=== PATIENT | female | born 1945 | race Caucasian/White ===

== ENCOUNTER 2016-10-16 12:20 | Inpatient (IN) | payer OTHER ==
[~2016-10-16] VITALS: Ht 167.6 cm; Wt 93.9 kg
--- NOTE | 2016-10-16 12:41 | NUR ---
SENT BY DR DALY LAWRENCE FOR RIGHT FOOT CELLULITIS. AWAITING MD ORDER
--- NOTE | 2016-10-16 13:30 | NUR ---
RAJANI PSYCHOLOGY INSTRUCTOR AT BEDSIDE FOR WOUND EVAL
--- NOTE | 2016-10-16 14:26 | NUR ---
CALLED FOR FOOD TRAY
[2016-10-16] MEDS ORDERED: MORPHINE SULFATE INJ 2 MG/ML DISP.SYRIN IV ONE (14:30)
[2016-10-16 14:40] LABS: BASOPHILS # (AUTO) 0.1 /CMM (0.0-0.2); BASOPHILS % (AUTO) 0.5 % (0.0-2.0); EOSINOPHILS # (AUTO) 0.3 /CMM (0.0-0.7); HEMATOCRIT 33 % (33-45); HEMOGLOBIN 10.4 g/dL (11.5-14.8); LYMPHOCYTES # (AUTO) 1.9 /CMM (0.8-4.8); LYMPHOCYTES % (AUTO) 18.1 % (20.0-44.0); MEAN CORPUSCULAR HEMOGLOBIN 29 PG (26.0-33.0); MEAN CORPUSCULAR HGB CONC 32 g/dl (31.0-36.0); MEAN CORPUSCULAR VOLUME 90 fL (82-100); MONOCYTES # (AUTO) 0.4 /CMM (0.1-1.30); MONOCYTES % (AUTO) 3.5 % (2.0-12.0); NEUTROPHILS # (AUTO) 7.9 /CMM (1.8-8.9); NEUTROPHILS % (AUTO) 74.9 % (43.0-81.0); PLATELET COUNT (AUTO) 348 /CMM (150-450); RDW COEFFICIENT OF VARIATION 15.4 (11.5-15.0); RED BLOOD CELL COUNT(AUTO) 3.64 MIL/uL (4.0-5.2); WHITE BLOOD COUNT (AUTO) 10.6 K/uL (4.3-11.0)
[2016-10-16 14:50] LABS: CALCIUM, SERUM 8.9 mg/dL (8.5-10.1); CARBON DIOXIDE 32 mmol/L (21-32); CHLORIDE 97 mmol/L (98-107); CREATININE 5.5 mg/dL (0.6-1.3); GLUCOSE 201 mg/dL (74-106); POTASSIUM 4.1 mmol/L (3.5-5.1); SODIUM SERUM 136 mmol/L (136-145); UREA NITROGEN, BLOOD 50 mg/dL (7-18)
[2016-10-16 14:53] LABS: INR 0.96 (0.87-1.13)
[2016-10-16 14:55] LABS: ALANINE AMINOTRANSFERASE 15 U/L (12-78); ALBUMIN 3.2 g/dL (3.4-5.0); ALKALINE PHOSPHATASE 84 U/L (46-116); ASPARTATE AMINOTRANSFERASE 19 U/L (15-37); BILIRUBIN,DIRECT 0.1 mg/dL (0.0-0.2); BILIRUBIN,TOTAL 0.3 mg/dL (0.2-1.0); TOTAL PROTEIN, SERUM 7.1 g/dL (6.4-8.2)
[2016-10-16 14:57] LABS: TROPONIN I 0.155 ng/mL (0.00-0.056)
[2016-10-16] MEDS ORDERED: VANCOMYCIN 1 GM in IV D5W 250 ML IV ONE (15:00)
[2016-10-16] MEDS ORDERED: PIPERACILLIN /TAZOBACTAM 3.375 G in IV D5W 50 ML IV ONE (15:00)
[2016-10-16] MEDS ORDERED: IV SET PRIMARY PUMP SET 1 EA INFUS.SET MC ONE (15:04)
[2016-10-16] MEDS ORDERED: MORPHINE SULFATE INJ 4 MG/ML DISP.SYRIN ONE (15:04)
--- NOTE | 2016-10-16 15:15 | NUR ---
RECEIVED ORDERS FROM DR LAWRENCE WRITTEN AND PLACED IN CHART
[2016-10-16] MEDS ORDERED: BUPR300T54 PO (15:31)
[2016-10-16] MEDS ORDERED: APIX2.5T PO (15:31)
[2016-10-16] MEDS ORDERED: LEVO200T8 PO (15:31)
[2016-10-16] MEDS ORDERED: GABA-532 PO (15:31)
[2016-10-16] MEDS ORDERED: CALC667C6 PO (15:40)
[2016-10-16] MEDS ORDERED: ATOR80TA PO (15:40)
[2016-10-16] MEDS ORDERED: ACET-73 PO (15:40)
[2016-10-16] MEDS ORDERED: METO100T3 PO (15:40)
[2016-10-16] MEDS ORDERED: CHOL20004 PO (15:40)
[2016-10-16] MEDS ORDERED: CYAN10009 PO (15:40)
--- NOTE | 2016-10-16 15:50 | NUR ---
GAVE REPORT TO LILIANA [facility] ROOM 327-2 DR LAWRENCE ADMITTING MD . RT DIABETIC FOOT
[2016-10-16 16:30] VITALS: BP 99/55
--- NOTE | 2016-10-16 16:30 | NUR ---
RN OPENING NOTES RECEIVED PATIENT FROM ER. PATIENT AWAKE, ALERT AND ORIENTED X3. NO COMPLAIN OF PAIN. RESPIRATIONS EVEN AND UNLABORED. NO ACUTE DISTRESS NOTED. IV SITE INTACT AND PATENT. PATIENT HAS WOUND ON RIGHT FOOT, ON THE MEDIAL SIDE AND ON PLANTAR AREA, PICTURES TAKEN AND PLACED IT ON CHART. PATIENT REFUSED BODY CHECK AT THIS TIME. BED IN LOWEST POSITION, SIDE RAILS UP X2. CALL LIGHT WITHIN REACH. WILL CONTINUE TO MONITOR
[2016-10-16] MEDS ORDERED: DEXTROSE 50%-WATER 50 ML DISP.SYRIN IV PRN (17:30)
[2016-10-16] MEDS ORDERED: FEE PK DOSING 1 MIN EA MC ONE (17:31)
[2016-10-16] MEDS: BLOOD SUGAR DIAGNOSTIC 1 EACH STRIP IN SCH ×2 (18:43→22:25)
[2016-10-16] MEDS: INSULIN REGULAR, HUMAN 100 UNIT/ML 3 ML VIAL SQ PRN ×2 (18:49→22:55)
--- NOTE | 2016-10-16 19:00 | NUR ---
RN CLOSING NOTES PATIENT ON BED RESTING. NO CHANGE OF CONDITION. NO ACUTE DISTRESS NOTED. BED IN LOWEST POSITION, CALL LIGHT WITHIN REACH. WILL ENDORSE TO CONVENTIONS RESERVATIONIST RN FOR CONTINUITY OF CARE.
--- NOTE | 2016-10-16 19:52 | NUR ---
RN OPENING NOTES RECEIVED REPORT FROM CHELY RNLILIANA. FOUND Pt AWAKE, RESTING IN BED. A/OX4, VERBAL, ABLE TO MAKE NEEDS KNOWN. NO S/S OF ACUTE DISTRESS OR SOB NOTED. IV ACCESS ON RFA #20G. SAFETY MEASURES IN PLACE. BED LOW, LOCKED, HOB ELEVATED, SIDE RAILS UP, CALL LIGHT AND BEDSIDE TABLE WITHIN REACH. WILL CONTINUE TO MONITOR Pt THROUGHOUT THE NIGHT FOR SAFETY.
[2016-10-16 20:00] VITALS: BP_SYST 152; BP_SYST 98; BP_DIAS 53; BP_DIAS 89
[2016-10-16 22:00] VITALS: BP 98/53
[2016-10-16] MEDS: APIXABAN 2.5 MG TABLET PO SCH (22:00)
[2016-10-16] MEDS ORDERED: ACETAMINOPHEN 325 MG TABLET PO PRN (22:00)
--- NOTE | 2016-10-16 22:00 | NUR ---
BG 300. ADMINISTERED 6UN OF INSULIN PER SLIDING SCALE. WILL CONTINUE TO MONITOR Pt's BG LEVELS.
[2016-10-16] MEDS ORDERED: ATORVASTATIN 40 MG TABLET ONE (22:02)
[2016-10-16] MEDS: ATORVASTATIN 40 MG TABLET PO SCH (22:25)
[2016-10-16] MEDS: PIPERACILLIN /TAZOBACTAM 2.25 G in IV D5W 50 ML IV SCH (22:30)
[2016-10-16] MEDS ORDERED: SECONDARY IV SET 1 EA INFUS.SET MC ONE (22:33)
[2016-10-16] MEDS ORDERED: IV NS 0.9% 250 ML IV ONE (22:33)
--- NOTE | 2016-10-16 23:00 | NUR ---
RN NOTES ELIQUIS 2.5MG WAS NOT GIVEN TO Pt BECAUSE THE MED WAS NOT AVAILABLE IN THE [facility]. ASKED NURSING SUP TO OVERRIDE THE MED, BUT NURSING SUP DID NOT HAVE IT AVAILABLE WELL.
[2016-10-17] MEDS ORDERED: ACETAMINOPHEN 325 MG TABLET ONE (02:58)
[2016-10-17 04:00] VITALS: BP 96/50
--- NOTE | 2016-10-17 06:30 | NUR ---
BG 136. ADMINISTERED 2UN OF INSULIN PER SLIDING SCALE.
[2016-10-17] MEDS: PIPERACILLIN /TAZOBACTAM 2.25 G in IV D5W 50 ML IV SCH ×3 (06:33→23:06)
[2016-10-17] MEDS: BLOOD SUGAR DIAGNOSTIC 1 EACH STRIP IN SCH ×4 (06:33→23:00)
[2016-10-17] MEDS: INSULIN REGULAR, HUMAN 100 UNIT/ML 3 ML VIAL SQ PRN ×4 (06:38→23:05)
--- NOTE | 2016-10-17 06:55 | NUR ---
RN CLOSING NOTES NO SIGNIFICANT CHANGES IN Pt's CONDITION. NO S/S OF ACUTE DISTRESS OR SOB NOTED DURING THE NIGHT. ALL NEEDS MET AND ATTENDED TO. SAFETY MEASURES IN PLACE. WILL ENDORSE TO DAYSHIFT RN FOR Pt's FIOR.
[2016-10-17 08:00] VITALS: BP 119/61
--- NOTE | 2016-10-17 08:12 | NUR ---
RN MS NOTES RECEIVED PATIENT IN BED, A/0 X4, VERBALLY RESPONSIVE, DENIES PAIN, DENIES SOB. DRESSING ON RIGHT FOOT WOUND CLEAR AND INTACT. IV LINE ON RIGHT FOREARM PATENT, NOTED WITH AV SHUNT ON LEFT UPPER ARM. ALL NEEDS MET, KEPT CLEAN AND DRY, CALL LIGHT WITHIN REACH.
[2016-10-17] MEDS: APIXABAN 2.5 MG TABLET PO SCH ×2 (09:00→16:35)
[2016-10-17] MEDS: CALCIUM ACETATE 667 MG TABLET PO SCH ×3 (09:01→17:25)
[2016-10-17] MEDS ORDERED: VANCOMYCIN 500 MG in IV D5W 100 ML IV PRN (09:30)
--- NOTE | 2016-10-17 09:32 | NUR ---
RN MS NOTES PER DR BRAY, HOLD MARLEY FOR POSSIBLE WOUND DEBRIDEMENT.
[2016-10-17] MEDS ORDERED: ACETAMINOPHEN ES 500 MG TABLET PO PRN (11:30)
[2016-10-17] MEDS: GABAPENTIN 100 MG CAPSULE PO SCH ×2 (12:00→17:25)
--- NOTE | 2016-10-17 12:00 | NUR ---
RN MS NOTES WOUND DEBRIDEMENT DONE BR DR DE LOS SANTOS, PATIENT TOLERATED WELL. DRESSING DONE BY , WILL CONTINUE TO MONITOR.
[2016-10-17] MEDS ORDERED: CALCIUM ACETATE 667 MG TABLET PO SCH (13:00)
--- NOTE | 2016-10-17 15:00 | NUR ---
RN MS NOTES PER FÉLIX GERARD, OK TO RESUME ELIQUIS TOMORROW.
--- NOTE | 2016-10-17 15:23 | NUR ---
ESTELITA WAN NOTES CONSENT OBTAINED FOR RIGHT LOWER EXTREMITY WOUND DEBRIDEMENT. Addendum: 10/17/16 at 1537 by THA PETE RN CONSENT OBTAINED AT [id number]
[2016-10-17 15:57] VITALS: BP 108/57
[2016-10-17] MEDS: METOPROLOL TARTRATE 50 MG TABLET PO SCH (16:35)
[2016-10-17] MEDS ORDERED: APIXABAN 2.5 MG TABLET PO SCH (17:00)
[2016-10-17] MEDS ORDERED: ATORVASTATIN 40 MG TABLET PO SCH (18:00)
--- NOTE | 2016-10-17 18:29 | NUR ---
RN MS NOTES SPOKE TO DR HARRISON REGARDING PATIENT NOT HAVING HAVING ANY PAIN MEDICATION. NEW PAIN MEDICATIONS ORDERED. PER DR HARRISON ITS OK TO D/C PREVIOUS TYLENOL ORDER. ORDERS NOTED AND CARRIED OUT.
[2016-10-17] MEDS ORDERED: HYDROCODONE/APAP 5/325MG 1 EACH TABLET PO PRN (18:30)
[2016-10-17] MEDS ORDERED: ACETAMINOPHEN 325 MG TABLET PO PRN (18:30)
--- NOTE | 2016-10-17 18:49 | NUR ---
RN MS NOTES PATIENT IN BED, A/O X 4, IN NO APPARENT DISTRESS, DENIES PAIN DENIES SOB. PATIENT IS S/P RIGHT LOWER LEG WOUND DEBRIDEMENT. ALL DUE MEDS GIVEN, ALL NEEDS MET, KEPT CLEAN AND DRY. IV LINE ON RIGHT FORE ARM PATENT, NOTED WITH [place] AV SHUNT. WILL ENDORSE CARE TO PM SHIFT.
[2016-10-17] MEDS: HYDROCODONE/APAP 5/325MG 1 EACH TABLET PO PRN (18:57)
--- NOTE | 2016-10-17 19:20 | NUR ---
RN OPEN NOTES RECEIVED PATIENT AWAKE IN BED. A/O X4. NO SIGNS OF DISTRESS OR DISCOMFORT. BREATHING EVEN AND UNLABORED. IV ACCESS IN RFA PATENT AND INTACT, NO SIGNS OF REDNESS OR INFILTRATION. [place] AV SHUNT INTACT. COMPLAINS OF PAIN 10/05 BUT WAS JUST GIVEN NORCO BY AM SHIFT AT 1857. DRESSING ON R FOOT C/D/I. BED IN LOW LOCKED POSITION WITH SIDE RAILS X2. CALL LIGHT WITHIN REACH. WILL CONTINUE TO MONITOR.
[2016-10-17 20:00] VITALS: BP 108/53
[2016-10-17] MEDS: ATORVASTATIN 40 MG TABLET PO SCH (22:58)
--- NOTE | 2016-10-17 23:00 | NUR ---
RN NOTES HD DONE WITH NO OUTPUT PER HD NURSE. PATIENT STABLE. WILL CONTINUE TO MONITOR.
--- NOTE | 2016-10-18 | NUR ---
RN NOTES PATIENT REFUSED NEURONTIN 200MG X3, STATES SHE DOES NOT TAKE THIS MED. PATIENT EDUCATION REINFORCED. WILL CONTINUE TO MONITOR.
[2016-10-18] MEDS: HYDROCODONE/APAP 5/325MG 1 EACH TABLET PO PRN (02:36)
--- NOTE | 2016-10-18 02:36 | NUR ---
RN NOTES ADMINISTERED NORCO 5/325 ORDERED FOR PAIN 7/10 IN R FOOT. VSS. WILL CONTINUE TO MONITOR.
[2016-10-18] MEDS: GABAPENTIN 100 MG CAPSULE PO SCH ×3 (06:00→12:00)
[2016-10-18] MEDS ORDERED: IV NS 0.9% 250 ML IV ONE (06:07)
[2016-10-18] MEDS: PIPERACILLIN /TAZOBACTAM 2.25 G in IV D5W 50 ML IV SCH (06:24)
[2016-10-18] MEDS: INSULIN REGULAR, HUMAN 100 UNIT/ML 3 ML VIAL SQ PRN ×2 (06:26→12:41)
[2016-10-18] MEDS: BLOOD SUGAR DIAGNOSTIC 1 EACH STRIP IN SCH ×2 (06:27→12:37)
--- NOTE | 2016-10-18 07:20 | NUR ---
RN OPEN NOTES RECEIVED REPORT FROM OVERHEAD CLEANER NURSE. PATIENT IS IN BED, AWAKE, ALERT AND ORIENTED TO NAME, PLACE AND TIME. NO SIGNS AND SYMPTOMS OF DISTRESS. DENIED PAIN. WILL CONTINUE TO MONITOR AND ASSESS PATIENT DURING MY SHIFT
--- NOTE | 2016-10-18 07:22 | NUR ---
RN OPEN NOTES PATIENT AWAKE IN BED. A/O X4. NO SIGNS OF DISTRESS OR DISCOMFORT. BREATHING EVEN AND UNLABORED. IV ACCESS IN RFA PATENT AND INTACT, NO SIGNS OF REDNESS OR INFILTRATION. [place] AV SHUNT INTACT. STATES PAIN LEVEL IS 4/10 AT THIS TIME AND TOLERABLE. DRESSING ON R FOOT C/D/I. ALL NEEDS MET. NO SIGNIFICANT CHANGES THROUGH THE NIGHT. BED IN LOW LOCKED POSITION WITH SIDE RAILS X2. CALL LIGHT WITHIN REACH. ENDORSED TO AM SHIFT FOR FIOR.
[2016-10-18] MEDS ORDERED: LEVOTHYROXINE SODIUM 100 MCG TABLET PO SCH (07:30)
[2016-10-18 08:00] VITALS: BP 125/61
[2016-10-18] MEDS: CALCIUM ACETATE 667 MG TABLET PO SCH ×2 (08:07→12:36)
[2016-10-18] MEDS: APIXABAN 2.5 MG TABLET PO SCH (08:50)
[2016-10-18 08:53] VITALS: BP 125/61
[2016-10-18] MEDS: METOPROLOL TARTRATE 50 MG TABLET PO SCH (08:53)
[2016-10-18] MEDS ORDERED: HYDROGEL DRESSING 90 GM TUBE TP SCH (09:00)
[2016-10-18] MEDS ORDERED: BUPROPION XL 150 MG TAB.ER.24 PO SCH (09:00)
[2016-10-18] MEDS ORDERED: CHOLECALCIFEROL 1,000 UNIT TABLET (VIT D3) PO SCH (09:00)
[2016-10-18] MEDS ORDERED: CYANOCOBALAMIN 500 MCG TABLET PO SCH (09:00)
--- NOTE | 2016-10-18 13:15 | NUR ---
NEURO UROLOGIST NOTES PATIENT DISCHARGE ORDERS RECEIVED AND CARRIED OUT. NO SIGNS AND SYMPTOMS OF DISTRESS AT TIME OF DISCHARGE. DISCHARGE INSTRUCTION EXPLAINED TO PATIENT AND PATIENT VERBALIZED UNDERSTANDING. PER PATIENT, NO NEW CONCERNS. DRESSING CHANGE AND EDUCATION PROVIDED TO PATIENT UPON DISCHARGE. ALL PERSONAL BELONGING WITH PATIENT AT TIME OF DISCHARGE. WOUND PICTURES WERE TAKEN UPON DISCHARGE AND PLACED IN THE CHART. IV SITE REMOVED. ID BAND REMOVED. PATIENT IS LEAVING AT STABLE CONDITION. VITAL SIGNS ARE STABLE. PATIENT HAD HER CAR AT THE WOUND CENTER AND INSISTED OF DRIVING HER SELF TO HER BOARDING HOME. IJOHN PAUL RN, ESCORTED PATIENT TO HER CAR. HEEL SEWER WILL CONTACT THE PATIENT FOR HOME HEALTH AND A NEW WHEELCHAIR.
== END 2016-10-18 13:31 | disposition home or self-care (01) | DRG 570 ==
LOC: ER 12:21 → MED 17:14
PROVIDERS: ADMIT Internal Medicine Nephrology; ATTEND Internal Medicine Nephrology
PROC: 0JBQ0ZZ Excision of Right Foot Subcutaneous Tissue and Fascia, Open Approach (ICD-10-PCS; principal; 2016-10-16)
PROC: 5A1D00Z (ICD-10-PCS; 2016-10-17)
DX: L03.115 Cellulitis of right lower limb (principal); N18.6 End stage renal disease; I12.0 Hypertensive chronic kidney disease with stage 5 chronic kidney disease or end stage renal disease; L97.419 Non-pressure chronic ulcer of right heel and midfoot with unspecified severity; S91.301A Unspecified open wound, right foot, initial encounter; X58.XXXA Exposure to other specified factors, initial encounter; Y92.009 Unspecified place in unspecified non-institutional (private) residence as the place of occurrence of the external cause; E11.40 Type 2 diabetes mellitus with diabetic neuropathy, unspecified; E11.22 Type 2 diabetes mellitus with diabetic chronic kidney disease; E11.610 Type 2 diabetes mellitus with diabetic neuropathic arthropathy; E11.621 Type 2 diabetes mellitus with foot ulcer; Z99.2 Dependence on renal dialysis; D64.9 Anemia, unspecified; E11.42 Type 2 diabetes mellitus with diabetic polyneuropathy; I48.91 Unspecified atrial fibrillation; Z79.4 Long term (current) use of insulin; Z79.01 Long term (current) use of anticoagulants; I87.2 Venous insufficiency (chronic) (peripheral)
CPT/HCPCS: 36415; 71010-TC; 73630-TC; 80048-TC; 80076-TC; 80202-TC; 82962-TC; 83605-TC; 84484-TC; 85025-TC; 85652-TC; 85730-TC; 86140-TC; 87040-TC; 87081-TC; 93970-TC; A4606; A6248; A6402; J1815; J2270; J2543; J3370; J7050; J7060; Z7610